=== PATIENT | female | born 1955 | race Caucasian/White ===

== ENCOUNTER → 2017-06-12 | Day surgery (SDC) | payer BC ==
[~2017-06-12] MED LIST: ACETAMINOPHEN/HYDROcodone 325 MG/5 MG TAB ONE; BUPIVACAINE/EPINEPHRINE 0.5% PF 30 ML VIAL ONE; KETOROLAC TROMETHAMINE 30 MG/ML (IVP) VIAL IV PUSH ONE; LACTATED RINGER'S 1000 ML INJ 1,000 ML ONE; MEPERIDINE HCL 25 MG/ML VIAL ONE; MIDAZOLAM HCL 2 MG/2 ML VIAL ONE; ONDANSETRON HCL 4 MG/2 ML VIAL IV PUSH ONE; PROMETHAZINE INJ 25 MG/ML VIAL ONE; PROPOFOL 200 MG/20 ML AMP IV ONE; ceFAZolin 2 GM PREMIX 50 ML ONE; metroNIDAZOLE 500 MG INJ 100 ML IV ONE
--- NOTE | 2017-06-12 10:14 | TN ---
cc: VIRIDIANA CARO M.D., JOSEPH D. M.D. DATE OF SURGERY: 06/12/2017 PREOPERATIVE DIAGNOSIS Cholelithiasis, cholecystitis. POSTOPERATIVE DIAGNOSIS Cholelithiasis, cholecystitis. PROCEDURE Laparoscopic cholecystectomy. ANESTHESIA General. SURGEON Dr. Jack. INDICATIONS This is a pleasant 61-year-old female who has had biliary colic type symptoms. She was evaluated by the [facility] lab technician and [facility]. DETAILS OF PROCEDURE The patient was taken to the operating room and placed in the supine position. After endotracheal anesthesia her abdomen is prepped with Betadine. A timeout is done. She is given appropriate preoperative antibiotics. We make an incision just below her umbilicus. A Veress needle is inserted. A saline load test is performed. The abdomen is insufflated to 15 mmHg. A trocar is introduced and the camera is introduced. Two other trocars are placed, one below the xyphoid and one in between the two previously placed ports. The gallbladder can be seen. There is scar tissue around the gallbladder consistent with previous chronic inflammation. The liver looks completely normal. The gallbladder is grasped superiorly and laterally. Adhesions are taken down with the electrocautery device. We identify the cystic duct and this is doubly ligated and transected. The cystic artery is very small, just requires one clip. The gallbladder is then teased off the gallbladder bed, placed into an EndoCatch, pulled out through the umbilical incision and passed off the field. We check our dissection site. There is excellent hemostasis without biliary leakage. Again the liver, both right and left lobe, looks completely normal without any abnormality. No other gross abnormality is seen. The trocars are removed. The fascial layer at the umbilicus is closed with 0 Vicryl. Skin is closed with 4-0 Vicryl. Steri-Strips are applied. Sterile bandage applied. The patient tolerated the procedure well. Bienvenido Jack MD JDB/BT /9:49 AM /10:02 AM LIBBY
== END | disposition home or self-care (01) ==
LOC: ESDC 06:16
PROVIDERS: ATTEND Surgery
DX: K80.64 Calculus of gallbladder and bile duct with chronic cholecystitis without obstruction (principal)
CPT/HCPCS: 00790; 47562; 88304; J0690; J1885; J2175; J2250; J2405; J2550; J3010; J7120